=== PATIENT | male | born 2000 | race Caucasian/White ===

== ENCOUNTER 2024-09-10 22:00 | Observation (INO) | payer BC, SELFPAY ==
[2024-09-10 22:12] VITALS: BP 145/88; PULSE 82; RESP 18; TEMP 36.2; O2SAT 100; BMI 31.9
[2024-09-10 22:30] VITALS: BP 130/93; PULSE 82; RESP 14; O2SAT 98
[2024-09-10 23:00] VITALS: BP 125/81; PULSE 74; RESP 13; O2SAT 97
--- NOTE | 2024-09-10 23:22 | ECG_ITS ---
APPROVED REPORT Exam: Resting ECG HR:60 bpm ECG Measurements Heart Rate 60 AXES AR 134 P 46 QRSd 101 QRS 86 QT 395 T -9 QTc 396 Conclusion SINUS RHYTHM NONSPECIFIC T-WAVE ABNORMALITY No STEMI Electronically signed by : REYES MARVIN, 09/11/2024 06:42:21
--- NOTE | 2024-09-10 23:22 | CT_ITS ---
PROCEDURE INFORMATION: Exam: CTA Abdomen and Pelvis With Contrast Exam date and time: 09/10/2024 11:54 PM Age: 24 years old Clinical indication: Other: Maroon stools TECHNIQUE: Imaging protocol: Computed tomographic angiography of the abdomen and pelvis with contrast. Exam focused on the arteries. 3D rendering (Not supervised by radiologist): MIP and/or 3D reconstructed images were created by the technologist. Radiation optimization: All CT scans at this facility use at least one of these dose optimization techniques: automated exposure control; mA and/or kV adjustment per patient size (includes targeted exams where dose is matched to clinical indication); or iterative reconstruction. Contrast material: ISOVUE; Contrast volume: 80 ml; Contrast route: INTRAVENOUS (IV); COMPARISON: CT ANGIO CHEST 09/10/2024 11:54 PM FINDINGS: Aorta: No aortic aneurysm. No aortic dissection. Celiac trunk and mesenteric arteries: No occlusion or significant stenosis. Renal arteries: No occlusion or significant stenosis. Right iliac arteries: No occlusion or significant stenosis. Left iliac arteries: No occlusion or significant stenosis. Liver: No mass. Gallbladder and biliary ducts: Unremarkable. No calcified stones. No ductal dilation. Pancreas: Unremarkable. No mass. No ductal dilation. Spleen: Unremarkable. No splenomegaly. Adrenal glands: Unremarkable. No mass. Kidneys and ureters: Unremarkable. No solid mass. No hydronephrosis. Stomach and bowel: There is extravasation of contrast into the bowel lumen at the mid ascending level centered on series 6, image 160 and series 9 image 90. No bowel obstruction. No mucosal thickening. Appendix: No evidence of appendicitis. Intraperitoneal space: Unremarkable. No free air. No significant fluid collection. Lymph nodes: Unremarkable. No enlarged lymph nodes. Urinary bladder: Unremarkable. No mass. Reproductive: Unremarkable as visualized. Bones/joints: There are bilateral L5 pars defects with subtle anterolisthesis of L5 on S1 noted. No acute fracture. Soft tissues: Unremarkable. IMPRESSION: Active hemorrhage mid ascending colon likely related to angiodysplasia. THIS REPORT CONTAINS FINDINGS THAT MAY BE CRITICAL TO PATIENT CARE. The findings were verbally communicated via telephone conference at 1:18 AM EDT on 09/11/2024 with Nan Varela. The findings were acknowledged and understood.
--- NOTE | 2024-09-10 23:22 | CT_ITS ---
PROCEDURE INFORMATION: Exam: CTA Chest With Contrast Exam date and time: 09/10/2024 11:54 PM Age: 24 years old Clinical indication: Other: Bloody sputum; Additional info: Maroon stools, blood streaked vomit TECHNIQUE: Imaging protocol: Computed tomographic angiography of the chest with contrast. Exam focused on the arteries. 3D rendering (Not supervised by radiologist): MIP and/or 3D reconstructed images were created by the technologist. Radiation optimization: All CT scans at this facility use at least one of these dose optimization techniques: automated exposure control; mA and/or kV adjustment per patient size (includes targeted exams where dose is matched to clinical indication); or iterative reconstruction. Contrast material: ISOVUE; Contrast volume: 80 ml; Contrast route: INTRAVENOUS (IV); COMPARISON: CR XR CHEST PORTABLE 09/10/2024 11:48 PM FINDINGS: Pulmonary arteries: Normal. No pulmonary emboli. Aorta: Unremarkable. No aortic aneurysm. No aortic dissection. Lungs: Unremarkable. No consolidation. No masses. Pleural spaces: Unremarkable. No pneumothorax. No pleural effusion. Heart: Unremarkable. No cardiomegaly. No pericardial effusion. Lymph nodes: Unremarkable. No enlarged lymph nodes. Bones/joints: Unremarkable. No acute fracture. Soft tissues: Unremarkable. IMPRESSION: No acute findings. No pulmonary embolus or acute aortic abnormality.
--- NOTE | 2024-09-10 23:22 | XR_ITS ---
PROCEDURE INFORMATION: Exam: XR Chest Exam date and time: 09/10/2024 11:48 PM Age: 24 years old Clinical indication: Other: Blood in sputum; Additional info: Blood streaked vomit and sputum TECHNIQUE: Imaging protocol: Radiologic exam of the chest. Views: 1 view. COMPARISON: No relevant prior studies available. FINDINGS: Lungs: Unremarkable. No consolidation. Pleural spaces: Unremarkable. No pleural effusion. No pneumothorax. Heart/Mediastinum: Unremarkable. No cardiomegaly. Vasculature: Unremarkable. Bones/joints: Unremarkable. IMPRESSION: No acute findings.
[2024-09-10 23:30] VITALS: BP 137/86; PULSE 85; RESP 15; O2SAT 98
[2024-09-10] MEDS: ACETAMINOPHEN 500MG TAB 1000 MG PO (23:30)
[2024-09-10 23:31] LABS: Red Blood Count 5.93 M/mm3 (4.60-6.20)
[2024-09-10 23:32] LABS: Basophils % 0.3 % (0.1-2.0); Eosinophils # 0.1 Kmm3 (0.0-0.4); Eosinophils % 0.8 % (0.1-12.0); Hematocrit 46.7 % (42.0-52.0); Hemoglobin 16.7 g/dL (14.1-18.0); Immature Granulocytes # 0.02 10^3uL; Immature Granulocytes % 0.2 %; Lymphocytes # 2.2 K/mm3 (0.7-4.5); Lymphocytes % 21.7 % (10-50); Mean Corpuscular HGB Conc 35.8 g/dL (31.8-35.4); Mean Corpuscular Hemoglobin 28.2 pg (27.0-31.2); Mean Corpuscular Volume 78.8 fl (80-94); Mean Platelet Volume 10.4 fl (7.4-10.4); Monocytes # 0.8 K/mm3 (0.1-1.0); Monocytes % 7.7 % (1.7-9.3); Neutrophils % 69.3 % (37.0-80.0); Nucleated Red Blood Cells # 0 10^3/uL; Nucleated Red Blood Cells % 0 %; Platelet Count 292 K/mm3 (142-424)
[2024-09-10 23:39] LABS: Alanine Aminotransferase 25 U/L (12-78); Albumin Level 4.5 g/dl (3.5-5.0); Albumin/Globulin Ratio 1.3 (1.1-1.8); Alkaline Phosphatase 100 U/L (38-126); Anion Gap 11.7 mEq/L (5-15); Aspartate Amino Transferase 31 U/L (17-59); Bilirubin,Total 0.9 mg/dl (0.2-1.3); Blood Urea Nitrogen 9 mg/dl (9-20); Calcium 9.6 mg/dl (8.4-10.2); Carbon Dioxide 27 mmol/L (22.0-30.0); Chloride 106 mmol/L (98-107); Creatinine Clearance Estimated 166 mL/min (50-200); Estimated Glomerular Filt Rate 104 ml/min (>60); GFR (African American) 125 ML/MIN (>60); Globulin 3.6 g/dL (1.3-3.2); Glucose 98 mg/dl (74-100); Potassium 3.7 mmoL/L (3.5-5.1); Sodium 141 mmol/L (136-145); Total Protein,Serum 8.1 g/dl (6.3-8.2)
[2024-09-10 23:40] LABS: INR 1.03 (0.9-1.1); Prothrombin Time 11.4 seconds (10.1-12.5)
[2024-09-10 23:43] LABS: Occult Blood,Stool Negative (Negative)
[2024-09-10 23:45] VITALS: BP 143/93; PULSE 66; RESP 17; O2SAT 97
[2024-09-10 23:51] LABS: Troponin I < 0.01 ng/ml (0.00-0.034)
[2024-09-11] VITALS (16 sets, daily range): BP systolic 87–130; BP diastolic 53–90; PULSE 56–78; RESP 16–25; TEMP 36.4–36.7; O2SAT 92–99; BMI 30.2; BMI 30.6
[2024-09-11] MEDS: SODIUM CHLORIDE 0.9% 10ML SYR (RAD ONLY) 10 ML IV (00:03)
[2024-09-11] MEDS: 0.9 % SODIUM CHLORIDE 50 ML VIAL IV (00:03)
[2024-09-11] MEDS: IOPAMIDOL-370 (76%);100ML BOTTLE 80 ML IV (00:03)
--- NOTE | 2024-09-11 01:25 | PC.NURSE ---
Spoke with irais gonzalez to inform of patient admission
--- NOTE | 2024-09-11 01:37 | ED_ITS ---
Discharge Plan Disposition Patient Disposition: Admitted Condition: Fair Clinical Impressions Clinical Impression: Lower GI bleed, Syncope, Post concussion syndrome Discharge ED Provider: William Mckeon General Adult HPI General Chief complaint: Headache Stated complaint: Trouble Seeing; Headaches; Coughing up Blood Time Seen by Provider: 09/10/24 23:03 Mode of Arrival: Ambulatory Source of Information: Patient Description of Symptoms (Recalled from ER Triage Doc. 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 pt states he passed out . Denies BT. Pt states he has been having trouble focusing and has felt disoriented. states he had an episode of vomiting blood today x2 but states he has intestional issues . Pt states he attempted to go to work today for 1.5 hour and that the bright lights were bothering him History of Present Illness HPI narrative: 24-year-old male presents to the ER with multiple complaints. Patient initially presented complaining about a strike to the head at work and since feeling disoriented and having trouble focusing as well as persistent mild headache. Patient denies blurry vision, numbness, tingling, or weakness. He does have photophobia. On further discussion, he states the reason he struck his head is that he has been having some intestinal issues and felt an episode coming on when he got lightheaded and passed out. He said it was brief but he did strike his head. He does not take blood thinners or have any history of bleeding disorder. Patient reports this was 2 days ago. On further discussion of his reported intestinal issues, he reports he has been having episodes of maroon- colored stool. He also states this morning he was slightly nauseous and vomited once and it seemed to be blood-streaked. He also reports 1 episode of blood- streaked phlegm after coughing but no persistent coughing up blood. On further discussion of his stool complaints, he states for the last few weeks he has had many days of maroon-colored loose stool. He specifically states the stool itself is maroon-colored, not brown with blood on the outside. He is not sure if he has hemorrhoids or other problems. He does not feel short of breath. He does not have any abdominal pain at this time. He reports today his stool is brown. No dysuria or hematuria. No chest pain or shortness of breath. Related Data Allergies Allergy/AdvReac Type Severity Reaction Status Date / Time NO KNOWN ALLERGIES Allergy Unknown Uncoded 03/27/17 15:41 [facility] Disclaimer: The information contained in this section may have been updated after the patient was seen, as this information can be updated by other users. Social History Smoking Status: Never smoker alcohol intake: never current occupational status: employed Travel in the last 8 weeks?: None ROS Obtained: Yes Systems reviewed as appropriate & no additional complaints except as documented Per HPI Physical Exam General General appearance: alert and in no apparent distress Head Head exam: atraumatic and normocephalic Eye Eye exam: Present PERRL and EOMI ENT ENT exam: Present mucous membranes moist Neck Neck exam: Present normal inspection and full ROM Chest Chest inspection: Present symmetric chest wall rise Respiratory Respiratory exam: Present normal lung sounds bilaterally; Absent respiratory distress, wheezes or stridor Cardiovascular Cardiovascular exam: Present regular rate and normal rhythm Abdominal Exam Abdominal exam: Present soft; Absent distention, tenderness, guarding or rebound Rectal Exam Rectal exam: Present normal rectal tone and heme (-) 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 with no hemorrhoids or fissure Extremities Exam Extremities exam: Present full ROM; Absent edema Neurological Exam Neurological exam: Present alert, oriented X3, CN II-XII intact and normal gait; Absent motor sensory deficit Psychiatric Psychiatric exam: Present normal affect and normal mood Skin Skin exam: Present warm and dry Medical Decision Making Medical Records Screening: Per USPSTF and CDC recommendations, given the prevalence of disease in our region, it is our hospital?s policy to screen for HIV and viral Hepatitis for all patients aged 18 and over and those with ongoing risk factors. Neo Inquiry Pt receiving controlled substance: No Vital Signs: 09/10/24 22:12 09/10/24 22:30 09/10/24 23:00 Temperature 97.2 F L Temperature Source Temporal Artery Scan Pulse Rate 82 74 Pulse Rate [Right] 82 Respiratory Rate 18 14 13 Blood Pressure 130/93 H 125/81 Blood Pressure [Right Arm] 145/88 H Blood Pressure Mean [Right Arm] 107 Blood Pressure Source Automatic Cuff Automatic Cuff Blood Pressure Source [Right Arm] Automatic Cuff Blood Pressure Position [Right Arm] Sitting 02 Sat by Pulse Oximetry 100 98 97 Oxygen Delivery Method Room Air Room Air Room Air 09/10/24 23:30 09/10/24 23:45 09/11/24 00:30 Temperature Temperature Source Pulse Rate 85 66 63 Pulse Rate [Right] Respiratory Rate 15 17 22 Blood Pressure 137/86 143/93 H 124/79 Blood Pressure [Right Arm] Blood Pressure Mean [Right Arm] Blood Pressure Source Automatic Cuff Blood Pressure Source [Right Arm] Blood Pressure Position [Right Arm] 02 Sat by Pulse Oximetry 98 97 97 Oxygen Delivery Method Room Air 09/11/24 01:00 Temperature Temperature Source Pulse Rate 64 Pulse Rate [Right] Respiratory Rate 25 H Blood Pressure 117/78 Blood Pressure [Right Arm] Blood Pressure Mean [Right Arm] Blood Pressure Source Blood Pressure Source [Right Arm] Blood Pressure Position [Right Arm] 02 Sat by Pulse Oximetry 96 Oxygen Delivery Method Lab Data Lab Results 09/10/24 22:40: WBC 10.0, RBC 5.93, Hgb 16.7, Hct 46.7, MCV 78.8 L, MCH 28.2, M CHC 35.8 H, RDW 12.0, Plt Count 292, MPV 10.4, Neut % (Auto) 69.3, Lymph % (Auto) 21.7, [place] % (Auto) 7.7, Eos % (Auto) 0.8, Baso % (Auto) 0.3, Neut # (Auto) 7.0, Lymph # (Auto) 2.2, [place] # (Auto) 0.8, Eos # (Auto) 0.1, Baso # (Auto) 0.0, PT 11.4, INR 1.03, APTT 25.0, Sodium 141, Potassium 3.7, Chloride 106, Carbon Dioxide 27, Anion Gap 11.7, BUN 9, Creatinine 0.90, Estimated Creat Clear 166, Estimated GFR 104, Est GFR ( Amer) 125, Glucose 98, Calcium 9.6, Total Bilirubin 0.9, AST 31, ALT 25, Alkaline Phosphatase 100, Troponin I < 0.01, Total Protein 8.1, Albumin 4.5, Globulin 3.6 H, Albumin/Globulin Ratio 1.3 09/10/24 23:23: Stool Occult Blood Negative 09/10/24 22:40 09/10/24 22:40 Orders (Tests/Meds): ED MEDICATIONS Discontinued Medications Generic Name Dose Route Start Last Admin Trade Name Freq PRN Reason Stop Dose Admin Acetaminophen 1,000 mg 09/10/24 23:22 09/10/24 23:30 Acetaminophen 500mg Tab PO 09/10/24 23:23 1,000 mg ONCE ONE Administration Iopamidol 80 ml 09/11/24 00:02 09/11/24 00:03 Iopamidol-370 (76%);100ml Bottle IV 09/11/24 00:03 80 ml ONCE ONE Administration Sodium Chloride 50 ml 09/11/24 00:02 09/11/24 00:03 0.9 % Sodium Chloride 50 Ml Vial IV 09/11/24 00:03 50 ml ONCE ONE Administration Sodium Chloride 10 ml 09/11/24 00:02 09/11/24 00:03 Sodium Chloride 0.9% 10ml Syr (Rad Only) IV 09/11/24 00:03 10 ml ONCE ONE Administration ORDERS Category Date Time Status CT angio abd/pel - GI Bleed Stat Cat Scan 09/10/24 23:[address] angio chest - dissection Stat Cat Scan 09/10/24 23:22 Completed CXR --portable [XR chest portable] Stat Exams 09/10/24 23:22 Completed CBC w/Auto Diff [Complete Blood Count Auto Diff] Stat Lab 09/10/24 22:40 Completed CMP [Comprehensive Metabolic Panel] Stat Lab 09/10/24 22:40 Completed Occult Blood,Stool Stat Lab 09/10/24 23:23 Completed PT INR [Prothrombin Time INR] Stat Lab 09/10/24 22:40 Completed PTT [Activated Partial Thrombo Time] Stat Lab 09/10/24 22:40 Completed Trop I [Troponin I] Stat Lab 09/10/24 22:40 Completed Troponin I Q3H Lab 09/11/24 02:30 Ordered Troponin I Q3H Lab 09/11/24 05:30 Ordered ECG Request Stat Y 09/10/24 23:22 Ordered Medical Decision Narrative: In summary, this 24-year-old male presents to the emergency department today with multiple complaints including headache, difficulty focusing, syncope, maroon-colored stools. On initial evaluation patient is hemodynamically stable, afebrile, GCS 15, benign abdominal exam, cardiopulmonary exam benign, no peripheral edema, brisk capillary refill, rectal exam with brown-colored stool and no evidence of hemorrhoids, no fissure. Differential diagnosis includes but is not limited to postconcussive syndrome, I considered intracranial bleed or skull fracture but have extremely low suspicion for either of these since patient is 2 days post injury and GCS 15 with no neurologic deficits. I do not believe he requires CT head. With patient's other complaints, I suspect he may have GI bleed either upper or lower, potential for anemia, possible coagulopathy, with syncope I also considered the possibility of ACS though patient has not had any chest pain, or arrhythmia/arrhythmogenic abnormality like WPW, Brugada, HCM, or prolonged QT. With his report of 1 episode of blood- streaked vomitus/1 episode of blood-streaked hemoptysis, I considered upper GI bleed, Mary-Avalos tear, PE though I have low suspicions for these. Ruling out the most morbid conditions for my assessment. Based on these concerns, I ordered CT angiography, serum lab studies, cardiac workup. ECG personally interpreted demonstrates normal sinus rhythm, rate 60, normal axis, normal SC and QTc, no STEMI, no evidence of WPW, Brugada, or HCM, or prolonged QT.. Patient received Tylenol for treatment. Labs personally reviewed demonstrate no leukocytosis or anemia, hemoglobin normal at 16.7, platelets normal at 292, PT/INR and APTT normal, CMP unremarkable and nonactionable, troponin undetectably low less than 0.01. Stool occult negative. X-ray personally interpreted does not demonstrate acute intrathoracic abnormality, see radiology read final interpretation.. CT imaging personally interpreted demonstrates no acute dissection or PE, no evidence of esophageal perforation on CTA chest. See radiology read for final interpretation. I received a phone call from the reading radiologist regarding patient's CTA abdomen pelvis which demonstrates active extravasation into the mid ascending colon which the radiologist believes is likely related to angiodysplasia. I appreciate this phone call and update from the radiologist. See radiology read for full interpretation. On reassessment patient is resting comfortably, he has not had any bowel movements in the ER. Vitals remained stable. Though he does have an area of active blush into the intestinal lumen at this time I do not believe he requires transfer for higher level of care because he has stable hemodynamics and has been having this problem reportedly for multiple weeks but has normal hemoglobin. Inpatient GI is available at this facility and I believe patient is appropriate for admission to this facility for continued symptomatic monitoring and management and GI or general surgery evaluation. Patient is comfortable with this plan. I discussed this case with the hospitalist including the fact that despite patient has an area of active extravasation he is very hemodynamically stable and has extremely reassuring labs. We also discussed that his negative Hemoccult supports the statement from the patient that he was having intermittent maroon-colored stools. Patient was graciously accepted for admission to the hospitalist service. He was admitted in stable condition. Critical Care Critical Care Time Critical Care Time: No
--- NOTE | 2024-09-11 01:42 | CT_ITS ---
PROCEDURE INFORMATION: Exam: CT Head Without Contrast Exam date and time: 09/11/2024 1:54 AM Age: 24 years old Clinical indication: Pain; Headache TECHNIQUE: Imaging protocol: Computed tomography of the head without contrast. Radiation optimization: All CT scans at this facility use at least one of these dose optimization techniques: automated exposure control; mA and/or kV adjustment per patient size (includes targeted exams where dose is matched to clinical indication); or iterative reconstruction. COMPARISON: No relevant prior studies available. FINDINGS: Brain: Normal. No hemorrhage. Unremarkable white matter. No mass effect. Cerebral ventricles: No ventriculomegaly. Paranasal sinuses: Visualized sinuses are unremarkable. No fluid levels. Mastoid air cells: Visualized mastoid air cells are well aerated. Orbital cavities: The orbital contents are symmetric and normal. Bones: Unremarkable. No acute fracture. Soft tissues: Unremarkable. IMPRESSION: No acute intracranial abnormality.
--- NOTE | 2024-09-11 01:42 | PC.NURSE ---
Report called to SALOME Will
--- NOTE | 2024-09-11 01:59 | P.HP_ITS ---
<Statement entered by Jase Salazar MD - 09/15/24 17:40> Personally evaluated the patient and agree with the plan of care as outlined by the PRESS TENDER. History of Present Illness *Admission Date: 09/11/24 *Reason for visit:: Headache *History of present illness: This is a 24-year-old male who has no known past medical history who presents with a chief complaint of headache. Due to patient's symptoms, he presented to the emergency room for evaluation. While in the emergency room, chest x-ray was negative for any acute cardiopulmonary findings. CTA of the chest was also negative for any acute intrathoracic or any acute cardiopulmonary process. CTA of the abdomen pelvis revealed acute him mention mild ascending colon likely related to an angiodysplasia. Due to these findings, hospital medicine was contacted for further management. During my evaluation of the patient, patient states that he has felt lightheaded with some blurred vision coupled with an occipital headache rated 5 out of 10 that started over the past week. Patient states after work approximately 1 week ago, he went home and was sitting on his bed and had an episode of syncope. Patient states that this happened around 1900 hrs. He does not know how long he was out he just figured that he had passed out because he was tired. Patient states over the last several days he has been having the a for symptomology. He reported to the ER provider that he has been having some blood in his stool. As a result of these findings, CTA of the abdomen pelvis was obtained. ER provider shared with me that patient revealed he has been having maroon-colored stools. My bedside discussion with the patient states that he has blood in his stools that started approximately 4 weeks ago. Patient states he initially passed some bright red blood and thought it may have been hemorrhoids. Over the next 4 weeks his blood loss was intermittent out of his GI tract. He would have some small bright red bleeding to nothing. However, he did have an episode where the stool was totally maroon. Patient is denying any melanotic stools, hematemesis, hematuria, diplopia, chest pain, shortness of breath, dyspnea, nausea, vomiting, abdominal pain, or diarrhea. Patient was Hemoccult negative in the emergency room. And his workup in the emergency room was benign. [facility] Disclaimer: The information contained in this section may have been updated after the patient was seen, as this information can be updated by other users. Medical History (Updated 09/11/24 @ 02:23 by Clara Jama RN) Broken arm ADHD Surgical History (Updated 09/11/24 @ 02:23 by Clara Jama RN) History of surgery on arm Social History (Updated 09/11/24 @ 02:23 by Clara Jama RN) Smoking Status: Never smoker alcohol intake: never current occupational status: employed Travel in the last 8 weeks?: None Have you lived/traveled outside US in past 30 days?: No Contact w/someone who lives/traveled outside US past 30 days?: No Exposure to someone with infectious disease in past 14 days?: No Do you have a fever (greater than 100.4 F or 38 C)?: No Have you tested positive for COVID-19?: No Exposed to someone with COVID-19 in past 14 days?: No Do you have a sore throat?: No Do you have a cough?: Yes Do you have any weakness?: No Do you have any diarrhea?: No Are you experiencing any unusual bleeding?: No Do you have any muscle aches/pain?: No Do you have any abdominal pain?: No Are you experiencing loss of taste or smell?: No Review of Systems Review of Systems Review of systems:: pertinent systems reviewed and negative unless documented below Constitutional Constitutional: Reports headache(s) Eyes Eyes: Reports system reviewed and no additional complaints, except as documented ENT Ears, Nose, Mouth, and Throat: Reports system reviewed and no additional complaints, except as documented and Reports headache(s) *Cardiovascular Cardiovascular: Reports system reviewed and no additional complaints, except as documented *Respiratory Respiratory: Reports system reviewed and no additional complaints, except as documented *Gastrointestinal Gastrointestinal: Reports hematochezia *Genitourinary Genitourinary: Reports system reviewed and no additional complaints, except as documented *Musculoskeletal Musculoskeletal: Reports system reviewed and no additional complaints, except as documented Integumentary/Breasts Skin/Breast: Reports system reviewed and no additional complaints, except as documented *Neurologic Neurologic: Reports system reviewed and no additional complaints, except as documented and Reports headache(s) Psychiatric Psychiatric: Reports system reviewed and no additional complaints, except as documented Endocrine Endocrine: Reports system reviewed and no additional complaints, except as documented Hematologic/Lymphatic Hematologic/Lymphatic: Reports system reviewed and no additional complaints, except as documented Allergic/Immunologic Allergic/Immunologic: Reports system reviewed and no additional complaints, except as documented Meds Home Medications and Allergies Home Medications ?Medication ?Instructions ?Recorded ?Confirmed ?Type No Known Home Medications 09/11/24 0608/31 History New Prescriptions to Start Prescriptions: Allergies Allergy/AdvReac Type Severity Reaction Status Date / Time NO KNOWN ALLERGIES Allergy Unknown Uncoded 03/27/17 15:41 Exam Data for Last 24 hours Vital signs and Labs for Last 24 Hours: Temp Pulse Resp BP Pulse Ox O2 Del Method 97.8 F 74 18 126/83 96 Room Air 09/11/24 01:45 09/11/24 01:45 09/11/24 01:45 09/11/24 01:45 09/11/24 01:00 09/10/24 23:30 Laboratory Results - last 24 hr 09/10/24 22:40: WBC 10.0, RBC 5.93, Hgb 16.7, Hct 46.7, MCV 78.8 L, MCH 28.2, MCHC 35.8 H, RDW 12.0, Plt Count 292, MPV 10.4, Neut % (Auto) 69.3, Lymph % (Auto) 21.7, [place] % (Auto) 7.7, Eos % (Auto) 0.8, Baso % (Auto) 0.3, Neut # (Auto) 7.0, Lymph # (Auto) 2.2, [place] # (Auto) 0.8, Eos # (Auto) 0.1, Baso # (Auto) 0.0, PT 11.4, INR 1.03, APTT 25.0, Sodium 141, Potassium 3.7, Chloride 106, Carbon Dioxide 27, Anion Gap 11.7, BUN 9, Creatinine 0.90, Estimated Creat Clear 166, Estimated GFR 104, Est GFR ( Amer) 125, Glucose 98, Calcium 9.6, Total Bilirubin 0.9, AST 31, ALT 25, Alkaline Phosphatase 100, Troponin I < 0.01, Total Protein 8.1, Albumin 4.5, Globulin 3.6 H, Albumin/Globulin Ratio 1.3 09/10/24 23:23: Stool Occult Blood Negative I & O for Last 24 hours: Intake & Output 09/08/24 09/09/24 09/10/24 09/11/24 23:59 23:59 23:59 23:59 Weight 92.533 kg Constitutional Constitutional: no acute distress *Routine HEENT Exam Head: Present normocephalic and atraumatic Eye: Present EOMI and PERRL ENT: Present mucous membranes moist *Routine Neck Exam Neck: Present supple, full ROM and trachea midline *Routine Respiratory Exam Respiratory: Present CTA bilaterally, normal respiratory effort, able to speak in complete sentences and symmetric chest movement *Routine Cardiovascular Exam Cardiovascular: Present RRR, Normal S1 and Normal S2 *Routine Abdominal Exam Abdominal: Present soft and normoactive bowel sounds *Routine Rectal Exam Rectal:: deferred *Routine Genitalia Exam Genitalia:: deferred *Routine Extremities Exam Extremities: Present full ROM, pulses intact and normal capillary refill Routine Back/Spine/Pelvis Exam Back/Spine: Present full ROM *Routine Skin Exam Skin: Present intact, dry, warm and normal turgor *Routine Neurological Exam Neurological: Present alert, oriented X3, CN II-XII intact, moving all extremities and normal speech Routine Psychiatric Exam Psychiatric: Present normal affect, normal thought process, cooperative, good insight and good judgment H&P: Result Impressions 24-year-old nontoxic-appearing male presents with a chief complaint of headache with abnormal findings found on CTA of the chest to include angiodysplasia in the ascending colon. Patient voices possible syncopized in with 1 episode after work but he is not totally clear. Has had episodes of bright red blood that were minimal only 1 gross episode of maroon stool. Assessment and Plan *Assessment and plan (1) Syncope: Status: Acute Qualifiers: Syncope type: unspecified Qualified Code(s): R55 - Syncope and collapse Category: Medical Code(s): R55 - Syncope and collapse (2) Lower GI bleed: Status: Acute Category: Medical Code(s): K92.2 - Gastrointestinal hemorrhage, unspecified (3) Post concussion syndrome: Status: Acute Category: Medical Code(s): F07.81 - Postconcussional syndrome (4) Head ache: Status: Acute Qualifiers: Headache chronicity pattern: unspecified pattern Headache type: unspecified Intractability: not intractable Qualified Code(s): R51.9 - Headache, unspecified Category: Medical Code(s): R51.9 - Headache, unspecified Plan Assessment: Syncope - Not clear if patient actually had a syncopal episode - Will consider 2D echo but is less likely cardiac in nature - Will obtain CT scan of the head without contrast -During my interview patient was denying any potential of hitting his head Headache/postconcussion syndrome -As mentioned he was headache free during my evaluation -Will obtain an above image to be thorough -If patient has worsening of headache will consider MRI of the brain Possible lower GI bleed/angiodysplasia -Patient is nontoxic in appearance and has stable hemoglobin, heart rate, and her hematocrit -Will place on cardiac telemetry -Will monitor hemoglobin hematocrit - Will consult GI in the a.m. - Will keep patient n.p.o. until evaluated by GI specialist - Patient is currently stable. Patient is not in need of emergent endoscopy; however, since he is syncopized and potentially he does need evaluation sooner than later Plan: Admit patient to the MedSurg unit on telemetry Activity as tolerated Vital signs every 4 hours Keep patient n.p.o. for now until evaluated by GI specialist/general surgeon CBC/BMP daily 4 mg Zofran IV push to 8 hours. Nausea from Full code I will discussed this case with attending physician Dr. Saalzar and I look forward to more input
[2024-09-11 02:52] LABS: Hematocrit 43.6 % (42.0-52.0); Hemoglobin 15.8 g/dL (14.1-18.0)
[2024-09-11 03:21] LABS: Troponin I < 0.01 ng/ml (0.00-0.034)
[2024-09-11 06:20] LABS: Basophils % 0.4 % (0.1-2.0); Eosinophils # 0.2 Kmm3 (0.0-0.4); Eosinophils % 1.9 % (0.1-12.0); Hematocrit 45.2 % (42.0-52.0); Hemoglobin 15.8 g/dL (14.1-18.0); Immature Granulocytes # 0.01 10^3uL; Immature Granulocytes % 0.1 %; Lymphocytes # 2.4 K/mm3 (0.7-4.5); Lymphocytes % 29.9 % (10-50); Mean Corpuscular Hemoglobin 27.9 pg (27.0-31.2); Mean Corpuscular Volume 79.9 fl (80-94); Mean Platelet Volume 10.4 fl (7.4-10.4); Monocytes # 0.7 K/mm3 (0.1-1.0); Monocytes % 8.7 % (1.7-9.3); Neutrophils # 4.6 K/mm3 (1.8-7.8); Nucleated Red Blood Cells # 0 10^3/uL; Nucleated Red Blood Cells % 0 %; Platelet Count 282 K/mm3 (142-424); Red Blood Count 5.66 M/mm3 (4.60-6.20); Red Cell Distribution Width-SD 34.5 fL; White Blood Count 7.9 K/mm3 (4.8-10.8)
--- NOTE | 2024-09-11 06:31 | PC.NURSE ---
Pt. was admitted overnight from the ED with a lower GI bleed. P.t is alert and orientated x 4. Pt. is on room air. Pt. denies any abdominal pain , nausea, or vomiting a this time. Pt. states he has had a headache for the last week, has had light headedness, blurry vision, and feeling unsteady and had a couple of syncopal episodes. Pt. noted blood in stool 4 weeks ago. stools are maroon in color. Pt. to get a GI consult. Personal items and call reynoso in reach.
[2024-09-11 06:47] LABS: Troponin I < 0.01 ng/ml (0.00-0.034)
[2024-09-11 07:28] LABS: Chloride 107 mmol/L (98-107)
[2024-09-11 07:29] LABS: Potassium 4.2 mmoL/L (3.5-5.1); Sodium 140 mmol/L (136-145)
[2024-09-11 07:32] LABS: Anion Gap 12.2 mEq/L (5-15); Blood Urea Nitrogen 9 mg/dl (9-20); Calcium 9.6 mg/dl (8.4-10.2); Carbon Dioxide 25 mmol/L (22.0-30.0); Creatinine Clearance Estimated 178 mL/min (50-200); Estimated Glomerular Filt Rate 119 ml/min (>60); GFR (African American) 144 ML/MIN (>60); Glucose 91 mg/dl (74-100)
[2024-09-11] MEDS: PEG-ELECTROLYTE SOLN 4000ML BOTTLE 2000 ML PO (07:44)
[2024-09-11 09:23] LABS: Iron 103 ug/dL (49-181)
[2024-09-11 09:32] LABS: Total Iron Binding Capacity 328 ug/dL (261-462)
[2024-09-11 10:00] LABS: Ferritin 93.4 ng/ml (17.9-464)
[2024-09-11] MEDS: LACTATED RINGERS 1000ML 1,000 ML 999 ML IV (10:14)
--- NOTE | 2024-09-11 10:33 | EXP.ACUTE.PN ---
Subjective *Date: 09/11/24 *Time: 15:15 Interval history: Patient states he is feeling overall well. He is sitting up in the bed with his mother at the bedside. He is working on his bowel prep for his colonoscopy this afternoon. States he is tolerating it well. Denies abdominal pain, nausea, vomiting, fever, and weakness. Medical Exam Vital signs and Labs for Last 24 Hours: Vital Signs Temp Pulse Pulse Resp BP BP Pulse Ox 09/11/24 08:55 09/11/24 08:49 97.8 F 56 L 16 129/69 98 09/11/24 08:00 97.8 F 56 L 16 129/69 98 09/11/24 07:56 09/11/24 06:53 09/11/24 05:00 09/11/24 04:00 97.6 F 66 18 126/90 98 09/11/24 03:00 09/11/24 02:30 98 09/11/24 02:06 78 18 126/83 98 09/11/24 01:45 97.8 F 74 18 126/83 09/11/24 01:00 64 25 H 117/78 96 09/11/24 00:30 63 22 124/79 97 09/10/24 23:45 66 17 143/93 H 97 09/10/24 23:30 85 15 137/86 98 09/10/24 23:00 74 13 125/81 97 09/10/24 22:30 82 14 130/93 H 98 09/10/24 22:12 97.2 F L 82 18 145/88 H 100 O2 Del Method 09/11/24 08:55 Room Air 09/11/24 08:49 Room Air 09/11/24 08:00 Room Air 09/11/24 07:56 Room Air 09/11/24 06:53 Room Air 09/11/24 05:00 Room Air 09/11/24 04:00 Room Air 09/11/24 03:00 Room Air 09/11/24 02:30 Room Air 09/11/24 02:06 Room Air 09/11/24 01:45 09/11/24 01:00 09/11/24 00:30 09/10/24 23:45 09/10/24 23:30 Room Air 09/10/24 23:00 Room Air 09/10/24 22:30 Room Air 09/10/24 22:12 Room Air Intake and Output 09/10/24 09/11/24 09/11/24 23:59 07:59 15:59 Other: Number of Unmeasured Voids 1 Weight 92.533 kg 88.479 kg Patient Weight 09/11/24 23:59 Weight 88.479 kg Laboratory Results - last 24 hr 09/10/24 22:40: WBC 10.0, RBC 5.93, Hgb 16.7, Hct 46.7, MCV 78.8 L, MCH 28.2, MCHC 35.8 H, RDW 12.0, Plt Count 292, MPV 10.4, Neut % (Auto) 69.3, Lymph % (Auto) 21.7, [place] % (Auto) 7.7, Eos % (Auto) 0.8, Baso % (Auto) 0.3, Neut # (Auto) 7.0, Lymph # (Auto) 2.2, [place] # (Auto) 0.8, Eos # (Auto) 0.1, Baso # (Auto) 0.0, PT 11.4, INR 1.03, APTT 25.0, Sodium 141, Potassium 3.7, Chloride 106, Carbon Dioxide 27, Anion Gap 11.7, BUN 9, Creatinine 0.90, Estimated Creat Clear 166, Estimated GFR 104, Est GFR ( Amer) 125, Glucose 98, Calcium 9.6, Total Bilirubin 0.9, AST 31, ALT 25, Alkaline Phosphatase 100, Troponin I < 0.01, Total Protein 8.1, Albumin 4.5, Globulin 3.6 H, Albumin/Globulin Ratio 1.3 09/10/24 23:23: Stool Occult Blood Negative 09/11/24 02:30: Troponin I < 0.01 09/11/24 02:41: Hgb 15.8, Hct 43.6 09/11/24 05:30: WBC 7.9, RBC 5.66, Hgb 15.8, Hct 45.2, MCV 79.9 L, MCH 27.9, MCHC 35.0, RDW 12.0, Plt Count 282, MPV 10.4, Neut % (Auto) 59.0, Lymph % (Auto) 29.9, [place] % (Auto) 8.7, Eos % (Auto) 1.9, Baso % (Auto) 0.4, Neut # (Auto) 4.6, Lymph # (Auto) 2.4, [place] # (Auto) 0.7, Eos # (Auto) 0.2, Baso # (Auto) 0.0, Sodium 140, Potassium 4.2, Chloride 107, Carbon Dioxide 25, Anion Gap 12.2, BUN 9, Creatinine 0.80, Estimated Creat Clear 178, Estimated GFR 119, Est GFR ( Amer) 144, Glucose 91, Calcium 9.6, Troponin I < 0.01 09/11/24 05:35: Iron 103, TIBC 328, Iron Saturation 31.53163, Ferritin 93.4 I & O for Labs for Last 24 Hours: Intake & Output 09/08/24 09/09/24 09/10/24 09/11/24 23:59 23:59 23:59 23:59 Weight 92.533 kg 88.479 kg Head: Present normocephalic Neck: Present normal inspection and full ROM Respiratory: Present CTA bilaterally Cardiac: Present Reg Rate and Rhythm GI: Present soft and hyperactive bowel sounds; Absent distention or tenderness Rectal (male): Present deferred (male): Present deferred Extremities: Present normal inspection and full ROM Skin: Present intact Neuro: Present alert, awake, oriented x 3 and moves all extremities Assessment and Plan *Assessment and plan (1) Lower GI bleed: Status: Acute Category: Medical Code(s): K92.2 - Gastrointestinal hemorrhage, unspecified (2) Head ache: Status: Acute Qualifiers: Headache chronicity pattern: unspecified pattern Headache type: unspecified Intractability: not intractable Qualified Code(s): R51.9 - Headache, unspecified Category: Medical Code(s): R51.9 - Headache, unspecified Plan Mr. Manning is a 24-year-old male who presented to the emergency department with headache and possible syncopal episode 2 days prior. Patient stated he had an episode of blood-streaked emesis and that he has been having maroon or dark red stools. Workup was done in the emergency department lab work was unremarkable, hemoglobin stable at 16.7 and Hematocrit 46.7. CMP showed no electrolyte abnormalities or kidney dysfunction. Occult stool was also negative. CTs of the head, chest, abdomen, and pelvis were ordered. Head and chest CT were both unremarkable, abdomen and pelvis CT showed active hemorrhage likely related to angiodysplasia. The emergency provider discussed these findings with hospital medicine and decision was made to admit for further evaluation and GI consult. #Lower GI bleed: ?GI was consulted by hospital medicine for further evaluation, recommendations of colonoscopy today for further evaluation of possible intestinal bleeding. - Patient remains hemodynamically stable vital signs within normal limits blood pressure 129/69, pulse 56, respirations 16, temperature 97.8 orally, O2 saturation 98% on room air. ?Patient denies abdominal, pain dark stools, no nausea, vomiting. ?Bowel prep ordered for colonoscopy later this afternoon. ?Iron studies were obtained today, TIBC 328, iron saturation 31.4, ferritin 93.4, iron 103. #Headache: ?Patient denies any headache this morning. ?Liter bolus of lactated Ringer's given IV to offset dehydration risk. ?Acetaminophen 650 mg every 4 hours as needed ordered for pain. NPO diet Full code VTE prophylaxis contraindicated due to GI bleed Ambulate as tolerated
[2024-09-11 13:57] LABS: Vitamin B12 336 pg/mL (239-931)
--- NOTE | 2024-09-11 13:59 | P.PNANES_ITS ---
[facility] Disclaimer: The information contained in this section may have been updated after the patient was seen, as this information can be updated by other users. Medical History Broken arm ADHD Surgical History History of surgery on arm Social History Smoking Status: Never smoker alcohol intake: never substance use type: unknown current occupational status: employed Travel in the last 8 weeks?: None [facility] Anesthesia Checklist Patient Identification Patient Identification: Arm Band and Verbal (Name & ) Structural Data Planned Operative Procedure/s: colonscopy Consent for Planned Operative Procedure(s) Verified: Yes Verified Documents: Surgical Consent and History and Physical NPO Status Verified Time NPO: 00:00 Additional verifications Anesthesia Reactions: No Airway Assessment Mallampati Score:: Class II Dentition: Poor Dentition Neurological Assessment Level of Consciousness: Awake, Alert and Appropriate Hx Seizures: No Anesthesia Plan Anesthesia Risk discussed: Yes Anesthesia Plan: Verified ASA Class: I Anesthesia Type: MAC
--- NOTE | 2024-09-11 14:21 | EXP.HP ---
History of Present Illness *Admission Date: 09/11/24 *Reason for visit:: Rectal bleeding/hematochezia and CT with colonic AVM *History of present illness: Mr. Manning is a 24-year-old gentleman that started noting red blood with his bowel movements 4 weeks ago. This was initially bright red and now sometimes maroon. He did have CT angiography showing an angiodysplasia of the ascending colon. He was admitted for headache and head trauma from work-related accident and now also is here for diagnostic colonoscopy. The examination is deemed medically necessary for diagnostic colonoscopy. The patient has been seen, interviewed and examined prior to the procedure by both myself and the anesthesia provider. [facility] Disclaimer: The information contained in this section may have been updated after the patient was seen, as this information can be updated by other users. Medical History Broken arm ADHD Surgical History History of surgery on arm Social History (Updated 09/11/24 @ 14:00 by Lizet Preciado CRNA) Smoking Status: Never smoker alcohol intake: never substance use type: unknown current occupational status: employed Travel in the last 8 weeks?: None Have you lived/traveled outside US in past 30 days?: No Contact w/someone who lives/traveled outside US past 30 days?: No Exposure to someone with infectious disease in past 14 days?: No Do you have a fever (greater than 100.4 F or 38 C)?: No Have you tested positive for COVID-19?: No Exposed to someone with COVID-19 in past 14 days?: No Do you have a sore throat?: No Do you have a cough?: Yes Do you have any weakness?: No Do you have any diarrhea?: No Are you experiencing any unusual bleeding?: No Do you have any muscle aches/pain?: No Do you have any abdominal pain?: No Are you experiencing loss of taste or smell?: No Other Medical History Have you received the Flu Vaccine for this season: No Have you received the Pneumonia Vaccine: No Review of Systems Review of Systems Review of systems (narrative): Negative Constitutional Constitutional: Reports headache(s) ENT Ears, Nose, Mouth, and Throat: Reports headache(s) *Cardiovascular Comments: Negative *Gastrointestinal Comments: Negative *Genitourinary Comments: Negative *Musculoskeletal Comments: Negative *Neurologic Neurologic: Reports system reviewed and no additional complaints, except as documented and Reports headache(s) Comments: Negative Meds Home Medications and Allergies Home Medications ?Medication ?Instructions ?Recorded ?Confirmed ?Type No Known Home Medications 09/11/24 09/11/24 History New Prescriptions to Start Prescriptions: Allergies Allergy/AdvReac Type Severity Reaction Status Date / Time No Known Allergies Allergy Unverified 09/11/24 07:04 Exam Data for Last 24 hours Vital signs and Labs for Last 24 Hours: Temp Pulse Resp BP Pulse Ox O2 Del Method 97.8 F 56 L 16 129/69 98 Room Air 09/11/24 08:49 09/11/24 08:49 09/11/24 08:49 09/11/24 08:49 09/11/24 08:49 09/11/24 13:00 Laboratory Results - last 24 hr 09/10/24 22:40: WBC 10.0, RBC 5.93, Hgb 16.7, Hct 46.7, MCV 78.8 L, MCH 28.2, MCHC 35.8 H, RDW 12.0, Plt Count 292, MPV 10.4, Neut % (Auto) 69.3, Lymph % (Auto) 21.7, [place] % (Auto) 7.7, Eos % (Auto) 0.8, Baso % (Auto) 0.3, Neut # (Auto) 7.0, Lymph # (Auto) 2.2, [place] # (Auto) 0.8, Eos # (Auto) 0.1, Baso # (Auto) 0.0, PT 11.4, INR 1.03, APTT 25.0, Sodium 141, Potassium 3.7, Chloride 106, Carbon Dioxide 27, Anion Gap 11.7, BUN 9, Creatinine 0.90, Estimated Creat Clear 166, Estimated GFR 104, Est GFR ( Amer) 125, Glucose 98, Calcium 9.6, Total Bilirubin 0.9, AST 31, ALT 25, Alkaline Phosphatase 100, Troponin I < 0.01, Total Protein 8.1, Albumin 4.5, Globulin 3.6 H, Albumin/Globulin Ratio 1.3 09/10/24 23:23: Stool Occult Blood Negative 09/11/24 02:30: Troponin I < 0.01 09/11/24 02:41: Hgb 15.8, Hct 43.6 09/11/24 05:30: WBC 7.9, RBC 5.66, Hgb 15.8, Hct 45.2, MCV 79.9 L, MCH 27.9, MCHC 35.0, RDW 12.0, Plt Count 282, MPV 10.4, Neut % (Auto) 59.0, Lymph % (Auto) 29.9, [place] % (Auto) 8.7, Eos % (Auto) 1.9, Baso % (Auto) 0.4, Neut # (Auto) 4.6, Lymph # (Auto) 2.4, [place] # (Auto) 0.7, Eos # (Auto) 0.2, Baso # (Auto) 0.0, Sodium 140, Potassium 4.2, Chloride 107, Carbon Dioxide 25, Anion Gap 12.2, BUN 9, Creatinine 0.80, Estimated Creat Clear 178, Estimated GFR 119, Est GFR ( Amer) 144, Glucose 91, Calcium 9.6, Troponin I < 0.01 09/11/24 05:35: Iron 103, TIBC 328, Iron Saturation 31.21437, Ferritin 93.4, Folate 7.10 I & O for Last 24 hours: Intake & Output 09/08/24 09/09/24 09/10/24 09/11/24 23:59 23:59 23:59 23:59 Weight 204 lb 195 lb 1 oz *Routine HEENT Exam Head: Present normocephalic Eye: Present EOMI and PERRL ENT: Present mucous membranes moist *Routine Neck Exam Neck: Present supple *Routine Respiratory Exam Respiratory: Present CTA bilaterally *Routine Cardiovascular Exam Cardiovascular: Present RRR *Routine Abdominal Exam Abdominal: Present soft and normoactive bowel sounds; Absent tenderness *Routine Rectal Exam Rectal:: deferred *Routine Genitalia Exam Genitalia:: deferred *Routine Extremities Exam Extremities: Absent cyanosis, clubbing or edema *Routine Skin Exam Skin: Present warm; Absent rash *Routine Neurological Exam Neurological: Present alert and oriented X3 Assessment and Plan *Assessment and plan (1) Hematochezia: Status: Acute Category: Medical Code(s): K92.1 - Melena (2) Bright red blood per rectum: Status: Acute Category: Medical Code(s): K62.5 - Hemorrhage of anus and rectum (3) Lower GI bleed: Status: Acute Category: Medical Code(s): K92.2 - Gastrointestinal hemorrhage, unspecified Plan A/P: 1. Bright red blood per rectum/maroon stools/lower GI bleed with CT evidence of angiodysplasia bleeding in ascending colon is the preprocedural diagnosis. The patient will be anesthetized/sedated using MAC sedation. The patient has been seen and examined. Cardiac and lung assessment prior to the examination is stable. Proceed with planned diagnostic colonoscopy.
--- NOTE | 2024-09-11 14:24 | HMH.PROCNOTE ---
[facility] Procedure Note Date: 09/11/24 Time: 14:41 Procedure Note:: Colonoscopy Procedure Report: Colonoscopy snare cautery polypectomy, Endo Clip placement and cold biopsies Endoscopist: Salvador Ribera II, MD Referring physician: Jase Salazar MD Date of Procedure: September 11, 2024 Equipment: Olympus 190 variable stiffness pediatric colonoscope Sedation: MAC sedation Indication: Mr. Manning is a 24-year-old gentleman who was admitted after having a work-related head injury, persistent mild headache and trouble focusing. On further discussion with the patient, he has had bright red and maroon stools for about 4 weeks (hematochezia). He reports no abdominal pain, weight loss or change in bowel habits. He reports no family history of colitis or colon cancer. The patient did have CT imaging of the abdomen that showed extravasation of contrast into the bowel lumen in the mid ascending colon and this was thought to be possible colonic angiodysplasia. Procedure: Prior to the procedure, a history and physical exam was performed, and patient's medications and allergies were reviewed. The risks, benefits and alternatives of the sedation and procedure were discussed with the patient. All questions were answered and informed consent was obtained. The patient was brought to the procedure room. Patient identification and proposed procedure were verified by the physician and the nurse. The patient was placed in a left lateral decubitus position and the scope was passed under direct vision. Throughout the procedure, the patient's blood pressure, pulse, and oxygen saturations were monitored continuously. The colonoscopy was accomplished without difficulty. The patient tolerated the procedure well. Findings: On digital rectal examination there was normal rectal tone. There were no external hemorrhoids. The colonoscope was introduced through the anal canal to the rectum and advanced to the cecum. The ileocecal valve and appendiceal orifice were identified. The scope was advanced a short distance into the ileum and there was some lymphoid nodular hyperplasia and one of the nodules was biopsied using cold biopsy forceps. The scope was then withdrawn into the colon. The cecum was normal. Within the ascending colon was a very large 3.5 to 4 cm pedunculated lobulated polyp. Based on its gross colonoscopic appearance it appeared to be a large colonic hamartoma (juvenile polyp). The polyp was completely removed on the stalk via snare cautery with forced coagulation. After excision, the polypectomy stalk was closed using 2 endoclips with hemostasis and provision of hemostasis. The remainder of the ascending, transverse, descending, sigmoid and rectum were normal. Upon retroflexion within the rectum there were grade 1 internal hemorrhoids. The preparation was excellent throughout with [place] Preparation Score of 9. The cecal time was 14 minutes. Impression: 1. Large 3.5 to 4 cm lobulated and pedunculated ascending colon polyp?suspect large colonic hamartoma (juvenile polyp) Plan: I will follow-up the polyp histology and discussed the findings with the patient and family. This is likely a juvenile polyp (colonic hamartoma) which is nonprecancerous. They are also called hamartomatous polyps and are made up of benign tissue elements that do not have potential for malignant or cancerous growth. This type of polyp can be diagnosed at any age but are more commonly seen in younger adults. Juvenile polyps are usually removed because of their larger size and higher likelihood of bleeding.
--- NOTE | 2024-09-11 15:14 | P.DS_ITS ---
<Statement entered by Jase Salazar MD - 09/15/24 17:39> Personally evaluated the patient and agree with the plan of care as outlined by the LAN/WAN ENGINEER. General Admission date:: 09/11/24 Discharge date: 09/11/24 HPI HPI HPI: Mr. Manning is a 24-year-old gentleman that started noting red blood with his bowel movements 4 weeks ago. This was initially bright red and now sometimes maroon. He did have CT angiography showing an angiodysplasia of the ascending colon. He was admitted for headache and head trauma from work-related accident and now also is here for diagnostic colonoscopy. The examination is deemed medically necessary for diagnostic colonoscopy. The patient has been seen, interviewed and examined prior to the procedure by both myself and the anesthesia provider. Hospital Course Hospital Course Hospital Course: Mr. Manning is a 24-year-old male who presented to the emergency department with headache and possible syncopal episode 2 days prior. Patient stated he had an episode of blood-streaked emesis and that he has been having maroon or dark red stools. Workup was done in the emergency department lab work was unremarkable, hemoglobin stable at 16.7 and Hematocrit 46.7. CMP showed no electrolyte abnormalities or kidney dysfunction. Occult stool was also negative. CTs of the head, chest, abdomen, and pelvis were ordered. Head and chest CT were both unremarkable, abdomen and pelvis CT showed active hemorrhage likely related to angiodysplasia. The emergency provider discussed these findings with hospital medicine and decision was made to admit for further evaluation and GI consult. #Lower GI bleed: ?GI was consulted by hospital medicine for further evaluation, recommendations of colonoscopy today for further evaluation of possible intestinal bleeding. ?Colonoscopy performed today and found a large 3.5 to 4 cm lobulated and pedunculated ascending colon polyp, suspect large colonic hamartoma (juvenile polyp). Discussed these findings with Dr. Ribera, he is confident that this polyp is not malignant or cancerous. Will follow-up with pathology. - Patient remains hemodynamically stable vital signs within normal limits blood pressure 104/54, pulse 70, respirations 16, temperature 97.5. ?Patient denies abdominal, pain dark stools, no nausea, vomiting. ?Iron studies were obtained today, TIBC 328, iron saturation 31.4, ferritin 93.4, iron 103. ?Patient instructed to follow-up with GI if problems persist. Discussed risk factors for post procedure. ?Liter bolus of lactated Ringer's given IV to offset dehydration risk. Total time spent on discharge: 33 minutes on chart review, counseling, documentation, and direct care with patient. Exam Data for Last 24 hours Vital signs and Labs for Last 24 Hours: Temp Pulse Resp BP Pulse Ox O2 Del Method O2 Flow Rate 97.5 F L 70 16 104/54 L 92 L Nasal Cannula 2 09/11/24 14:47 09/11/24 15:07 09/11/24 15:07 09/11/24 15:07 09/11/24 15:07 09/11/24 15:07 09/11/24 15:07 Laboratory Results - last 24 hr 09/10/24 22:40: WBC 10.0, RBC 5.93, Hgb 16.7, Hct 46.7, MCV 78.8 L, MCH 28.2, MCHC 35.8 H, RDW 12.0, Plt Count 292, MPV 10.4, Neut % (Auto) 69.3, Lymph % (Auto) 21.7, [place] % (Auto) 7.7, Eos % (Auto) 0.8, Baso % (Auto) 0.3, Neut # (Auto) 7.0, Lymph # (Auto) 2.2, [place] # (Auto) 0.8, Eos # (Auto) 0.1, Baso # (Auto) 0.0, PT 11.4, INR 1.03, APTT 25.0, Sodium 141, Potassium 3.7, Chloride 106, Carbon Dioxide 27, Anion Gap 11.7, BUN 9, Creatinine 0.90, Estimated Creat Clear 166, Estimated GFR 104, Est GFR ( Amer) 125, Glucose 98, Calcium 9.6, Total Bilirubin 0.9, AST 31, ALT 25, Alkaline Phosphatase 100, Troponin I < 0.01, Total Protein 8.1, Albumin 4.5, Globulin 3.6 H, Albumin/Globulin Ratio 1.3 09/10/24 23:23: Stool Occult Blood Negative 09/11/24 02:30: Troponin I < 0.01 09/11/24 02:41: Hgb 15.8, Hct 43.6 09/11/24 05:30: WBC 7.9, RBC 5.66, Hgb 15.8, Hct 45.2, MCV 79.9 L, MCH 27.9, MCH C 35.0, RDW 12.0, Plt Count 282, MPV 10.4, Neut % (Auto) 59.0, Lymph % (Auto) 29.9, [place] % (Auto) 8.7, Eos % (Auto) 1.9, Baso % (Auto) 0.4, Neut # (Auto) 4.6, Lymph # (Auto) 2.4, [place] # (Auto) 0.7, Eos # (Auto) 0.2, Baso # (Auto) 0.0, Sodium 140, Potassium 4.2, Chloride 107, Carbon Dioxide 25, Anion Gap 12.2, BUN 9, Creatinine 0.80, Estimated Creat Clear 178, Estimated GFR 119, Est GFR ( Amer) 144, Glucose 91, Calcium 9.6, Troponin I < 0.01 09/11/24 05:35: Iron 103, TIBC 328, Iron Saturation 31.74896, Ferritin 93.4, Vitamin B12 336, Folate 7.10 I & O for Last 24 hours: Intake & Output 09/08/24 09/09/24 09/10/24 09/11/24 23:59 23:59 23:59 23:59 Output Total 200 / 200 Balance -200 / -200 Weight 92.533 kg 88.479 kg Constitutional Constitutional: no acute distress *Routine HEENT Exam Head: Present normocephalic Eye: Present EOMI *Routine Neck Exam Neck: Present full ROM; Absent JVD *Routine Respiratory Exam Respiratory: Present CTA bilaterally, normal respiratory effort and able to speak in complete sentences *Routine Cardiovascular Exam Cardiovascular: Present RRR, Normal S1 and Normal S2 *Routine Abdominal Exam Abdominal: Present soft and normoactive bowel sounds; Absent tenderness *Routine Extremities Exam Extremities: Present full ROM; Absent tenderness *Routine Skin Exam Skin: Present intact *Routine Neurological Exam Neurological: Present alert, oriented X3 and normal speech Results Data Completed and Pending Labs on day of discharge: Labs from last 24 hours 09/11/24 09/11/24 09/11/24 05:35 05:30 02:41 WBC 7.9 RBC 5.66 Hgb 15.8 15.8 Hct 45.2 43.6 MCV 79.9 L MCH 27.9 MCHC 35.0 RDW 12.0 Plt Count 282 MPV 10.4 Neut % (Auto) 59.0 Lymph % (Auto) 29.9 [place] % (Auto) 8.7 Eos % (Auto) 1.9 Baso % (Auto) 0.4 Neut # (Auto) 4.6 Lymph # (Auto) 2.4 [place] # (Auto) 0.7 Eos # (Auto) 0.2 Baso # (Auto) 0.0 PT INR APTT Sodium 140 Potassium 4.2 Chloride 107 Carbon Dioxide 25 Anion Gap 12.2 BUN 9 Creatinine 0.80 Estimated Creat Clear 178 Estimated GFR 119 Est GFR ( Amer) 144 Glucose 91 Calcium 9.6 Iron 103 TIBC 328 Iron Saturation 31.08824 Ferritin 93.4 Total Bilirubin AST ALT Alkaline Phosphatase Troponin I < 0.01 Total Protein Albumin Globulin Albumin/Globulin Ratio Vitamin B12 336 Folate 7.10 Stool Occult Blood 09/11/24 09/10/24 09/10/24 02:30 23:23 22:40 WBC 10.0 RBC 5.93 Hgb 16.7 Hct 46.7 MCV 78.8 L MCH 28.2 MCHC 35.8 H RDW 12.0 Plt Count 292 MPV 10.4 Neut % (Auto) 69.3 Lymph % (Auto) 21.7 [place] % (Auto) 7.7 Eos % (Auto) 0.8 Baso % (Auto) 0.3 Neut # (Auto) 7.0 Lymph # (Auto) 2.2 [place] # (Auto) 0.8 Eos # (Auto) 0.1 Baso # (Auto) 0.0 PT 11.4 INR 1.03 APTT 25.0 Sodium 141 Potassium 3.7 Chloride 106 Carbon Dioxide 27 Anion Gap 11.7 BUN 9 Creatinine 0.90 Estimated Creat Clear 166 Estimated GFR 104 Est GFR ( Amer) 125 Glucose 98 Calcium 9.6 Iron TIBC Iron Saturation Ferritin Total Bilirubin 0.9 AST 31 ALT 25 Alkaline Phosphatase 100 Troponin I < 0.01 < 0.01 Total Protein 8.1 Albumin 4.5 Globulin 3.6 H Albumin/Globulin Ratio 1.3 Vitamin B12 Folate Stool Occult Blood Negative DS: Diagnosis Discharge Diagnosis (1) Hematochezia: Status: Acute Code(s): K92.1 - Melena (2) Bright red blood per rectum: Status: Acute Code(s): K62.5 - Hemorrhage of anus and rectum (3) Lower GI bleed: Status: Acute Code(s): K92.2 - Gastrointestinal hemorrhage, unspecified Meds Home Medications and Allergies Home Medications ?Medication ?Instructions ?Recorded ?Confirmed ?Type No Known Home Medications 09/11/24 06/0 08/31 History New Prescriptions to Start Prescriptions: Allergies Allergy/AdvReac Type Severity Reaction Status Date / Time No Known Allergies Allergy Unverified 09/11/24 07:04 Discharge Plan Disposition Patient Disposition: Home, Self-Care Condition: Fair Follow up Plan Follow up with: Salvador Ribera II, MD [Staff Physician, Gastroenterology] - Enter time for follow up Referral Note: 2-3 weeks Prescriptions/Medication Reconciliation: No Action No Known Home Medications Problem Reconciliation Problems Reviewed?: Yes Patient Discharge Instructions ACTIVITY: Continue current activity DIET: continue same diet Patient Instructions: Fainting, Postconcussion Syndrome, DI for Gastrointestinal Bleeding Print Language: Mosotho Providers Primary Care Provider: Provider,Referral Admit Provider: Jase Salazar Attending Provider: Jase Salazar
[2024-09-11 16:21] LABS: Hematocrit 42.6 % (42.0-52.0); Hemoglobin 14.5 g/dL (14.1-18.0)
--- NOTE | 2024-09-12 10:24 | SW/DCPLANNER ---
Patient is in the ER. Will call back on Sunday. Dameon Brown
--- NOTE | 2024-09-15 11:38 | SW/DCPLANNER ---
Spoke with patient on the phone. Patient stated that he is doing well. Patient stated that he is aware of his upcoming appointment. Patient stated that he is not taking any medicine and that he was not prescribed any new medicine. Patient stated that he has no concerns or questions at this time. Dameon Brown
== END 2024-09-11 16:39 | disposition home or self-care (01) ==
LOC: ER 09-11 01:25 → 2ND 09-11 01:29
PROVIDERS: Emergency Medicine; Internal Medicine Gastroenterology; Nurse Practitioner Family; Admitting Provider Student in an Organized Health Care Education/Training Program; Emergency Provider Student in an Organized Health Care Education/Training Program; Visit Provider Student in an Organized Health Care Education/Training Program
PROC: 0DJD8ZZ Inspection of Lower Intestinal Tract, Via Natural or Artificial Opening Endoscopic (ICD-10-PCS; CPT 45378; principal; 2024-09-11 12:30)
DX: K62.5 Hemorrhage of anus and rectum (principal); K64.0 First degree hemorrhoids; F07.81 Postconcussional syndrome; D12.2 Benign neoplasm of ascending colon
CPT/HCPCS: 45380; 45385; 36415; 70450; 71045; 71275; 74174; 80048; 80053; 82272; 82607; 82728; 82746; 83540; 83550; 84484; 85014; 85018; 85025; 85610; 85730; 93005; G0328; G0378; J2003; J2704; J7120; Q9967

== ENCOUNTER 2024-09-11 22:26 | Emergency (ER) | payer BC, SELFPAY ==
[2024-09-11 22:29] VITALS: BP 136/76; PULSE 63; RESP 18; TEMP 36.8; O2SAT 98; BMI 31.9
[2024-09-11 23:49] LABS: Basophils % 0.5 % (0.1-2.0); Eosinophils # 0.2 Kmm3 (0.0-0.4); Eosinophils % 3.1 % (0.1-12.0); Hemoglobin 14.4 g/dL (14.1-18.0); Immature Granulocytes # 0.01 10^3uL; Immature Granulocytes % 0.2 %; Lymphocytes # 2.4 K/mm3 (0.7-4.5); Lymphocytes % 37.3 % (10-50); Mean Corpuscular HGB Conc 35.1 g/dL (31.8-35.4); Mean Corpuscular Hemoglobin 28.2 pg (27.0-31.2); Mean Corpuscular Volume 80.2 fl (80-94); Monocytes # 0.6 K/mm3 (0.1-1.0); Monocytes % 8.9 % (1.7-9.3); Neutrophils # 3.3 K/mm3 (1.8-7.8); Nucleated Red Blood Cells # 0 10^3/uL; Nucleated Red Blood Cells % 0 %; Platelet Count 257 K/mm3 (142-424); Red Blood Count 5.11 M/mm3 (4.60-6.20); Red Cell Distribution Width 11.9 % (11.5-17.5); Red Cell Distribution Width-SD 34.5 fL; White Blood Count 6.5 K/mm3 (4.8-10.8)
[2024-09-12 00:05] VITALS: BP 131/68; PULSE 79; RESP 20; TEMP 36.6; O2SAT 100
--- NOTE | 2024-09-12 01:41 | ED_ITS ---
Discharge Plan Disposition Patient Disposition: Home, Self-Care Condition: Good Prescriptions Prescriptions: No Action No Known Home Medications Referrals Follow up/Referrals: Provider,Referral, MD [Primary Care Provider, Medical] - See instructions Activity Restrictions/Add. Instructions Additional Instructions/Restrictions: You were evaluated in the ER and are appropriate for discharge at this time. Continue monitoring your bleeding. Call Dr. Ribera office first thing in the morning and update them on your symptoms as well as whether you are currently bleeding or not. Ask them if they want you to come into the office for recheck. As discussed, immediately return to the ER if you have increased bleeding, bright red blood per rectum, lightheadedness, shortness of breath, or any other new, worsening, or otherwise concerning symptoms. Clinical Impressions Clinical Impression: Lower GI bleed, Colonoscopy causing post-procedural bleeding Instructions Patient Instructions: DI for Gastrointestinal Bleeding Print Language Print Language: Khmer Discharge ED Provider: Jeffrey Chavez General Adult HPI General Chief complaint: GI Bleed Stated complaint: bloody stool,had colonoscopy today Time Seen by Provider: 09/11/24 22:59 Mode of Arrival: Ambulatory Source of Information: Patient Description of Symptoms (Recalled from ER Triage Doc. by RN): PT presents for evaluation of rectal bleeding post colonoscopy. PT claims blood is bright red x1 bowel movements. No blood thinners. PT was admitted 09/10/2024 and discharged 09/11/2024 at 1600. History of Present Illness HPI narrative: 24-year-old male presents to the ER status post colonoscopy concerned about rectal bleeding. Patient reports 1 episode of blood per rectum and he describes it as dark and clotted. He is not on any blood thinners. Patient was admitted after visiting the ER on the night of 09/10/2024 and discharged during the day on 09/11/2024 after receiving colonoscopy. I reviewed records and patient had a pedunculated polyp that was suspected to be noncancerous removed. This was believed to be the source of lower GI bleeding that he had been experiencing previously. Patient was discharged in stable condition and reports he had the first bowel movement which was just clear liquid, his second bowel movement was blood clots as described. He has not had any additional bleeding since that time, he is not leaking any blood from the rectum. Does not describe bright red blood or active bleeding. He denies any dizziness or lightheadedness, no shortness of breath, no other associated symptoms. He is tolerating oral intake. No abdominal pain. Related Data Home Medications ?Medication ?Instructions ?Recorded ?Confirmed No Known Home Medications 09/11/2408/31 Allergies Allergy/AdvReac Type Severity Reaction Status Date / Time No Known Allergies Allergy Unverified 09/11/24 07:04 [facility] Disclaimer: The information contained in this section may have been updated after the patient was seen, as this information can be updated by other users. Medical History Broken arm ADHD Surgical History History of surgery on arm Social History (Updated 09/11/24 @ 14:00 by Lizet Preciado CRNA) Smoking Status: Never smoker alcohol intake: never substance use type: unknown current occupational status: employed Travel in the last 8 weeks?: None Have you lived/traveled outside [place] in past 30 days?: No Contact w/someone who lives/traveled outside US past 30 days?: No Exposure to someone with infectious disease in past 14 days?: No Do you have a fever (greater than 100.4 F or 38 C)?: No Have you tested positive for COVID-19?: No Exposed to someone with COVID-19 in past 14 days?: No Do you have a sore throat?: No Do you have a cough?: No Do you have any weakness?: No Do you have any diarrhea?: No Are you experiencing any unusual bleeding?: Yes Do you have any muscle aches/pain?: No Do you have any abdominal pain?: No Are you experiencing loss of taste or smell?: No Other Medical History Have you received the Flu Vaccine for this season: No Have you received the Pneumonia Vaccine: No ROS Obtained: Yes Systems reviewed as appropriate & no additional complaints except as documented Per HPI Physical Exam General General appearance: alert and in no apparent distress Head Head exam: atraumatic and normocephalic Eye Eye exam: Present PERRL and EOMI ENT ENT exam: Present mucous membranes moist Neck Neck exam: Present normal inspection and full ROM Chest Chest inspection: Present symmetric chest wall rise Respiratory Respiratory exam: Present normal lung sounds bilaterally; Absent respiratory distress, wheezes or stridor Cardiovascular Cardiovascular exam: Present regular rate and normal rhythm Abdominal Exam Abdominal exam: Present soft; Absent distention or tenderness Extremities Exam Extremities exam: Present full ROM; Absent edema Neurological Exam Neurological exam: Present alert and oriented X3; Absent motor sensory deficit Psychiatric Psychiatric exam: Present normal affect and normal mood Skin Skin exam: Present warm, dry and other (Brisk capillary refill less than 2 seconds) Medical Decision Making Medical Records Medical records reviewed: Yes I reviewed the patient's medical records. Screening: Per USPSTF and CDC recommendations, given the prevalence of disease in our region, it is our hospital?s policy to screen for HIV and viral Hepatitis for all patients aged 18 and over and those with ongoing risk factors. MR Comment: See HPI Neo Inquiry Pt receiving controlled substance: No Vital Signs: 09/11/24 22:29 09/12/24 00:05 Temperature 98.3 F 97.9 F Temperature Source Oral Pulse Rate 79 Pulse Rate [Right] 63 Respiratory Rate 18 20 Blood Pressure 131/68 Blood Pressure [Right Arm] 136/76 Blood Pressure Mean [Right Arm] 96 Blood Pressure Source Automatic Cuff Blood Pressure Position Sitting 02 Sat by Pulse Oximetry 98 Oxygen Delivery Method Room Air Room Air Lab Data Lab Results 09/11/24 23:41: WBC 6.5, RBC 5.11, Hgb 14.4, Hct 41.0 L, MCV 80.2, MCH 28.2, MCHC 35.1, RDW 11.9, Plt Count 257, MPV 10.0, Neut % (Auto) 50.0, Lymph % (Auto) 37.3, [place] % (Auto) 8.9, Eos % (Auto) 3.1, Baso % (Auto) 0.5, Neut # (Auto) 3.3, Lymph # (Auto) 2.4, [place] # (Auto) 0.6, Eos # (Auto) 0.2, Baso # (Auto) 0.0 09/11/24 23:41 Orders (Tests/Meds): ORDERS Category Date Time Status CBC w/Auto Diff [Complete Blood Count Auto Diff] Stat Lab 09/11/24 23:41 Completed Medical Decision Narrative: In summary, this 24-year-old male with comorbidities described in the HPI presents to the emergency department today with concerns of lower GI bleeding. On initial evaluation patient is hemodynamically stable, afebrile, GCS 15, brisk capillary refill, no active bleeding, benign abdominal exam. Differential diagnosis includes but is not limited to post colonoscopy bleeding, I considered the possibility of massive hemorrhage or anemia but I have very low suspicion for these based on the history provided by the patient. I attempted to contact Dr. Ribera by phone to discuss this patient's presentation to the ER, however he was not available. CBC was performed to evaluate blood counts. Patient has no evidence of anemia. Hemoglobin normal at 14.4. Which is slightly decreased from the time of admission however all of his cell lines are decreased so I suspect this is concentrational change and less likely due to blood loss. Since patient is having no active bleeding in the ER, no abdominal pain, blood counts are stable, he is hemodynamically stable, and he does not have any symptoms of blood loss clinically I believe he is appropriate for discharge at this time. He is comfortable with this plan. I instructed the patient to call GI for reevaluation first thing in the morning. He is agreeable to this. Patient was given instructions on symptomatic management, follow up instructions, and return precautions for the emergency department including if he passes bright red blood per rectum, has increased bleeding, lightheadedness, shortness of breath, or other symptoms of blood loss. Patient indicated understanding and was discharged in stable condition. Critical Care Critical Care Time Critical Care Time: No
== END 2024-09-12 00:06 | disposition home or self-care (01) ==
PROVIDERS: Emergency Medicine; Emergency Provider Emergency Medicine
DX: K92.2 Gastrointestinal hemorrhage, unspecified (principal); K91.840 Postprocedural hemorrhage of a digestive system organ or structure following a digestive system procedure
CPT/HCPCS: 85025; 99283

== ENCOUNTER 2025-01-22 17:29 | Emergency (ER) | payer BC, SELFPAY ==
[2025-01-22 17:37] VITALS: BP 154/93; PULSE 64; RESP 15; TEMP 36.8; O2SAT 100; BMI 30.4
--- NOTE | 2025-01-22 17:46 | ED_ITS ---
<Statement entered by Karie Jiang DO - 01/22/25 21:24> I was consulted by the CASS, and we discussed the complexity of problems being addressed. I approve the treatment and management plan for this patient's care in the emergency department, thus performing a substantial portion of the medical decision making. Karie Jiang DO Discharge Plan Disposition Patient Disposition: Xfer Psychiatric Hosp Condition: Good Prescriptions Prescriptions: No Action No Known Home Medications Referrals Follow up/Referrals: Provider,Referral, [Primary Care Provider, Medical] - See instructions Clinical Impressions Clinical Impression: Abdominal pain, Suicide ideation Print Language Print Language: Italian Discharge ED Provider: Karie Jiang General Adult HPI General Chief complaint: Abdominal Pain Stated complaint: Right Side Abd. Pain/Fatigue Time Seen by Provider: 01/22/25 17:55 Mode of Arrival: Ambulatory Source of Information: Patient Description of Symptoms (Recalled from ER Triage Doc. by RN): patient presents today for right sided abdominal pain that raiates to his right flank. patient reports he had clips placed got bleeding via colonoscopy here in September. no issues reported when urinating. History of Present Illness HPI narrative: 24-year-old male with a history of previous GI bleed presents emergency department with complaints of right sided abdominal pain that radiates to his flank. States he has had this pain for the past several weeks. He states he has vomited once about 3 days ago. He denies diarrhea, fevers. He also states that he feels fatigued. He reports that he did have to have a clip placed for GI bleed with Dr. Ribera at this facility however he never followed up afterwards Related Data Home Medications ?Medication ?Instructions ?Recorded ?Confirmed No Known Home Medications 09/11/24 0608/31 Allergies Allergy/AdvReac Type Severity Reaction Status Date / Time No Known Allergies Allergy Unverified 09/11/24 07:04 [facility] Disclaimer: The information contained in this section may have been updated after the patient was seen, as this information can be updated by other users. Medical History Broken arm ADHD Surgical History History of surgery on arm Social History Smoking Status: Former smoker alcohol intake: never substance use type: unknown current occupational status: employed Travel in the last 8 weeks?: None Have you lived/traveled outside [place] in past 30 days?: No Contact w/someone who lives/traveled outside [place] past 30 days?: No Exposure to someone with infectious disease in past 14 days?: No Do you have a fever (greater than 100.4 F or 38 C)?: Yes Have you tested positive for COVID-19?: No Exposed to someone with COVID-19 in past 14 days?: No Do you have a sore throat?: No Do you have a cough?: No Do you have any weakness?: No Do you have any diarrhea?: No Are you experiencing any unusual bleeding?: No Do you have any muscle aches/pain?: No Do you have any abdominal pain?: No Are you experiencing loss of taste or smell?: No Other Medical History Have you received the Flu Vaccine for this season: No Have you received the Pneumonia Vaccine: No ROS Obtained: Yes other Gastrointestinal Gastrointestingal: Reports abdominal pain, nausea and vomiting Genitourinary Male Genitourinary: Reports flank pain Physical Exam Narrative Physical exam: General: Awake, aware, in no acute distress HEENT: Normocephalic, no evidence of trauma CV: RRR, no murmurs, rubs, or gallops Pulm: CTA bilaterally with no rhonchi, rales, wheezes ABD: Diffuse tenderness noted on palpation of abdomen with normal active bowel sounds. Patient states the pain is worse on the right side. He also complains of mild right CVA tenderness on palpation. General General appearance: alert Respiratory Respiratory exam: Present normal lung sounds bilaterally Cardiovascular Cardiovascular exam: Present regular rate Neurological Exam Neurological exam: Present alert Psychiatric Psychiatric exam: Present suicidal ideation (Patient reports he has had thoughts that if he that he would be okay with that. He states he does not have a definitive plan of wanting to harm himself but since the spring he has had suicidal ideations.) Medical Decision Making Medical Records Screening: Per USPSTF and CDC recommendations, given the prevalence of disease in our region, it is our hospital?s policy to screen for HIV and viral Hepatitis for all patients aged 18 and over and those with ongoing risk factors. Neo Inquiry Pt receiving controlled substance: No Vital Signs: 01/22/25 17:37 01/22/25 18:51 01/22/25 19:14 Temperature 98.2 F Temperature Source Oral Pulse Rate 73 70 Pulse Rate [Right Radial] 64 Respiratory Rate 15 16 18 Blood Pressure 137/82 142/85 H Blood Pressure [Right Arm] 154/93 H Blood Pressure Mean [Right Arm] 113 Blood Pressure Source Automatic Cuff Blood Pressure Source [Right Arm] Automatic Cuff Blood Pressure Position Supine Blood Pressure Position [Right Arm] Sitting 02 Sat by Pulse Oximetry 100 100 70 L Oxygen Delivery Method Room Air Room Air Room Air Lab Data Lab Results 01/22/25 17:55: Urine Color Yellow, Urine Appearance Clear, Urine pH 6.0, Ur Specific [place] <= 1.005, Urine Protein Negative, Urine Glucose (UA) Negative, Urine Ketones Negative, Urine Blood Negative, Urine Nitrate Negative, Urine Bilirubin Negative, Urine Urobilinogen 0.2, Ur Leukocyte Esterase Negative, Urine RBC None, Urine WBC None, Ur Squamous Epith Cells None, Urine Bacteria None, Urine Opiates Screen Negative, Urine Methadone Screen Negative, Ur Barbituates Screen Negative, Ur Phencyclidine Scrn Negative, Ur Amphetamines Screen Negative, U Benzodiazepines Scrn Negative, Urine Cocaine Screen Negative, U Marijuana (THC) Screen Negative 01/22/25 17:56: WBC 6.2, RBC 5.81, Hgb 16.5, Hct 45.9, MCV 79.0 L, MCH 28.4, M CHC 35.9 H, RDW 12.2, Plt Count 255, MPV 10.2, Neut % (Auto) 61.4, Lymph % (Auto) 28.4, [place] % (Auto) 7.3, Eos % (Auto) 2.1, Baso % (Auto) 0.5, Neut # (Auto) 3.8, Lymph # (Auto) 1.8, [place] # (Auto) 0.5, Eos # (Auto) 0.1, Baso # (Auto) 0.0, Sodium 140, Potassium 4.3, Chloride 104, Carbon Dioxide 25, Anion Gap 15.3 H, BUN 7 L, Creatinine 0.80, Estimated Creat Clear 177, Estimated GFR 119, Est GFR ( Amer) 144, Glucose 104 H, Calcium 9.6, Magnesium 1.7, Total Bilirubin 0.6, AST 26, ALT 25, Alkaline Phosphatase 99, Total Protein 7.2, Albumin 4.4, Globulin 2.8, Albumin/Globulin Ratio 1.6, Lipase 107, Salicylates < 1.0 L, Acetaminophen < 10 L, Plasma/Serum Alcohol < 10 01/22/25 17:56 01/22/25 17:56 Orders (Tests/Meds): ED MEDICATIONS Discontinued Medications Generic Name Dose Route Start Last Admin Trade Name Sophie PRN Reason Stop Dose Admin Sodium Chloride 1,000 mls @ 999 mls/hr 01/22/25 17:55 01/22/25 19:13 Sod Chlor 0.9% 1000ml Bag IV 01/22/25 18:55 Infused .Q1H1M ONE Infusion Iopamidol 75 ml 01/22/25 18:34 01/22/25 18:37 Iopamidol-370 (76%);100ml Bottle IV 01/22/25 18:35 75 ml ONCE ONE Administration Ketorolac Tromethamine 15 mg 01/22/25 17:55 01/22/25 18:11 Ketorolac 15mg/Ml Vial IV 01/22/25 17:56 15 mg ONCE ONE Administration Sodium Chloride 10 ml 01/22/25 18:34 01/22/25 18:37 Sodium Chloride 0.9% 10ml Syr (Rad Only) IV 01/22/25 18:35 10 ml ONCE ONE Administration ORDERS Category Date Time Status CT abdomen pelvis w con Stat Cat Scan 01/22/25 17:55 Completed Acetaminophen Stat Lab 01/22/25 17:56 Completed Blood alcohol [Ethyl Alcohol] Stat Lab 01/22/25 17:56 Completed CBC w/Auto Diff [Complete Blood Count Auto Diff] Stat Lab 01/22/25 17:56 Completed CMP [Comprehensive Metabolic Panel] Stat Lab 01/22/25 17:56 Completed Drug Screen,Urine Stat Lab 01/22/25 17:55 Completed Lipase Stat Lab 01/22/25 17:56 Completed Magnesium Stat Lab 01/22/25 17:56 Completed Salicylate Stat Lab 01/22/25 17:56 Completed Urinalysis and Microscopic Stat Lab 01/22/25 17:55 Completed Medical Decision Narrative: Initial impression of presenting illness: 24-year-old male presents emergency department with complaints of right sided abdominal pain with right flank pain for the past several weeks. He reports that he did vomit once a few days ago. He denies fevers, diarrhea. He denies any urinary symptoms, black tarry stools or rectal bleeding. He reports that he does have a history of a GI bleed and had to have a clip placed by Dr. Ribera at this facility however he never followed up afterwards. He also reports that he has had suicidal ideations since the spring. He denies having an actual plan to harm himself but states that if he he would be okay with that. Differential diagnosis includes but is not limited to: Appendicitis, kidney stone, pyelonephritis, urinary tract infection, GI bleed, mental health crisis Patient arrives hemodynamically stable, afebrile, without respiratory distress with vital signs interpreted by myself. Initial physical exam reveals diffuse tenderness on palpation of abdomen however patient reports it is worse on the right than left. Patient also has mild right CVA tenderness. Rest of exam is unremarkable. Initial diagnostic plan: Laboratory studies including salicylate, Tylenol, urine drug screen, alcohol level for psychiatric clearance. CT of abdomen pelvis with IV contrast, normal saline bolus for hydration, Toradol for pain Results from initial plan were reviewed and interpreted by myself, pertinent positives include: Laboratory studies including urinalysis were nonactionable. CT of abdomen pelvis were also unremarkable for acute findings. Interventions in the ED: Patient was given normal saline bolus for hydration as well as Toradol for pain control. Patient was made aware of the results and the findings, upon reevaluation patient has remained stable throughout stay, symptoms have improved. Upon reevaluation patient is resting comfortably in his bed with no signs of acute distress. He has not had any episodes of vomiting or diarrhea during his ER stay. Consultation/discussion with other physicians: Spoke with Deyanira at [facility] regarding patient's suicidal ideations. Discussed patient's previous mental health complaints as well as previous suicide attempts which included attempted overdose on ibuprofen as well as excessive drinking and hopes that he would not wake up. She was agreeable to accept patient on behalf of Dr. Ioana Kasper for further evaluation. Disposition: I reviewed the findings today's workup with patient informed him no acute abnormalities were noted that he was medically cleared. Formed him that I would like to transfer him to the [facility] program for evaluation of his mental health. Formed him that I was worried about his depression and that while he does not have a plan at this time I was concerned that he could progress to the point of plan with a suicide attempt. [facility] Critical Care Critical Care Time Critical Care Time: No
--- NOTE | 2025-01-22 17:55 | CT_ITS ---
PROCEDURE INFORMATION: Exam: CT Abdomen And Pelvis With Contrast Exam date and time: 01/22/2025 6:36 PM Age: 24 years old Clinical indication: Abdominal pain; Additional info: Rlq/flank pain TECHNIQUE: Imaging protocol: Computed tomography of the abdomen and pelvis with contrast. Radiation optimization: All CT scans at this facility use at least one of these dose optimization techniques: automated exposure control; mA and/or kV adjustment per patient size (includes targeted exams where dose is matched to clinical indication); or iterative reconstruction. Contrast material: ISOVUE; Contrast volume: 75 ml; Contrast route: IV; COMPARISON: CT ANGIO ABD/PEL - GI BLEED 09/10/2024 11:54 PM FINDINGS: Liver: Low attenuation hepatic lesions measuring up to 7 mm in diameter are incompletely characterized, but are likely cysts. No followup imaging is recommended. Gallbladder and biliary ducts: Normal. No calcified stones. No ductal dilation. Pancreas: Normal. No ductal dilation. Spleen: Normal. No splenomegaly. Adrenal glands: Normal. No mass. Kidneys and ureters: Normal. No hydronephrosis. Stomach and bowel: Unremarkable. No obstruction. No mucosal thickening. Appendix: Unremarkable appendix. Intraperitoneal space: Unremarkable. No free air. No significant fluid collection. Vasculature: Unremarkable. No abdominal aortic aneurysm. Lymph nodes: Unremarkable. No enlarged lymph nodes. Urinary bladder: Unremarkable as visualized. Reproductive: Unremarkable as visualized. Bones/joints: Chronic pars defects of L5. Soft tissues: Unremarkable. IMPRESSION: No acute findings.
[2025-01-22 18:08] LABS: Microscopic, Urine URINE MICROSCOPIC (MICROSCOPIC)
[2025-01-22 18:09] LABS: Hematocrit 45.9 % (42.0-52.0); Hemoglobin 16.5 g/dL (14.1-18.0); Immature Granulocytes % 0.3 %; Mean Corpuscular HGB Conc 35.9 g/dL (31.8-35.4); Mean Corpuscular Hemoglobin 28.4 pg (27.0-31.2); Mean Corpuscular Volume 79.0 fl (80-94); Nucleated Red Blood Cells % 0 %; Platelet Count 255 K/mm3 (142-424); Red Blood Count 5.81 M/mm3 (4.60-6.20); Red Cell Distribution Width-SD 34.6 fL; White Blood Count 6.2 K/mm3 (4.8-10.8)
[2025-01-22 18:09] LABS: Bilirubin,Urine Negative (Negative); Color,Urine YELLOW (Yellow); Glucose,Urine (UA) Negative (Negative); Ketones,Urine Negative (Negative); Leukocyte Esterase,Urine Negative (Negative); PH,Urine 6.0 (5.0-8.5); Protein,Urine Negative (Negative); Specific Gravity, Urine <= 1.005 (1.005-1.030); Urobilinogen,Urine 0.2 EU/dl (0.2)
[2025-01-22] MEDS: KETOROLAC 15MG/ML VIAL 15 MG IV (18:11)
[2025-01-22] MEDS: 0.9 % SODIUM CHLORIDE 1000ML 1,000 ML 999 ML IV (18:11)
[2025-01-22 18:23] LABS: Alanine Aminotransferase 25 U/L (12-78); Albumin Level 4.4 g/dl (3.5-5.0); Albumin/Globulin Ratio 1.6 (1.1-1.8); Alkaline Phosphatase 99 U/L (38-126); Anion Gap 15.3 mEq/L (5-15); Aspartate Amino Transferase 26 U/L (17-59); Bilirubin,Total 0.6 mg/dl (0.2-1.3); Blood Urea Nitrogen 7 mg/dl (9-20); Calcium 9.6 mg/dl (8.4-10.2); Carbon Dioxide 25 mmol/L (22.0-30.0); Chloride 104 mmol/L (98-107); Creatinine Clearance Estimated 177 mL/min (50-200); Creatinine,Serum 0.80 mg/dl (0.66-1.25); Estimated Glomerular Filt Rate 119 ml/min (>60); GFR (African American) 144 ML/MIN (>60); Globulin 2.8 g/dL (1.3-3.2); Glucose 104 mg/dl (74-100); Lipase 107 U/L (23-300); Magnesium 1.7 mg/dl (1.6-2.3); Potassium 4.3 mmoL/L (3.5-5.1); Sodium 140 mmol/L (136-145); Total Protein,Serum 7.2 g/dl (6.3-8.2)
[2025-01-22 18:25] LABS: Acetaminophen < 10 ug/ml (10-30)
[2025-01-22 18:25] LABS: Barbiturates Screen,Urine Negative ng/ml (<200)
[2025-01-22 18:26] LABS: Benzodiazepines Screen,Urine Negative ng/ml (<200)
[2025-01-22 18:27] LABS: Amphetamine/Metha Screen,Urine Negative ng/ml (<1000)
[2025-01-22 18:29] LABS: Methadone Screen,Urine Negative ng/ml (<300); Opiate Screen,Urine Negative ng/ml (<300)
[2025-01-22 18:30] LABS: Phencyclidine Screen,Urine Negative ng/ml (<25)
[2025-01-22 18:31] LABS: Salicylate < 1.0 mg/dL (2.0-20.0)
[2025-01-22] MEDS: IOPAMIDOL-370 (76%);100ML BOTTLE 75 ML IV (18:37)
[2025-01-22] MEDS: SODIUM CHLORIDE 0.9% 10ML SYR (RAD ONLY) 10 ML IV (18:37)
[2025-01-22 18:51] VITALS: BP 137/82; PULSE 73; RESP 16; O2SAT 100
[2025-01-22 19:14] VITALS: BP 142/85; PULSE 70; RESP 18; O2SAT 70
--- NOTE | 2025-01-22 19:51 | PC.NURSE ---
Faxed pre auth form to [employer]
[2025-01-22 20:29] VITALS: BP 137/78; PULSE 68; RESP 18; TEMP 37; O2SAT 99
== END 2025-01-22 20:43 ==
PROVIDERS: Nurse Practitioner Family; Emergency Provider Student in an Organized Health Care Education/Training Program
DX: R10.31 Right lower quadrant pain (principal); R10.A1 Flank pain, right side; R45.851 Suicidal ideations; F33.9 Major depressive disorder, recurrent, unspecified
CPT/HCPCS: 74177; 80053; 80307; 80320; 80329; 81001; 83690; 83735; 85025; 96361; 96374; 99285; J1885; J7030; Q9967